=== PATIENT | female | born 1990 | race Two or more races ===

== ENCOUNTER 2019-08-25 22:20 | Inpatient (IN) | payer BC, OTHER ==
[2019-08-25 23:00] LABS: APPEARANCE,URINE SLIGHTLY-CLOUDY; BILIRUBIN,URINE NEGATIVE (NEGATIVE); COLOR,URINE YELLOW; GLUCOSE, URINE NEGATIVE (NEGATIVE); KETONES,URINE TRACE mg/dL (NEGATIVE); LEUKOCYTE ESTERASE,URINE TRACE (NEGATIVE); NITRITE,URINE NEGATIVE (NEGATIVE); PROTEIN,URINE NEGATIVE (NEGATIVE); URINE SPECIFIC GRAVITY 1.025; UROBILINOGEN,URINE NEGATIVE mg/dL (<2.0)
[2019-08-25 23:15] LABS: URINE AMPHETAMINES SCREEN NEGATIVE; URINE BARBITURATES SCREEN NEGATIVE; URINE BENZODIAZEPINES SCREEN NEGATIVE; URINE COCAINE SCREEN NEGATIVE; URINE METHADONE SCREEN NEGATIVE; URINE PHENCYCLIDINE SCREEN NEGATIVE
[2019-08-25] MEDS ORDERED: RINGERS SOLUTION,LACTATED 1,000 ML IV PRN (23:26)
[2019-08-25] MEDS ORDERED: MISOPROSTOL 0.2 MG TABLET ONE (23:31)
[2019-08-25] MEDS ORDERED: LIDOCAINE 1% INJ-PF (10 MG/ML) 30 ML SDV ONE (23:31)
[2019-08-25] MEDS ORDERED: OXYTOCIN/0.9 % SODIUM CHLORIDE 30 UNIT/500 ML RTUINJ ONE (23:31)
[2019-08-25] MEDS ORDERED: OXYTOCIN 10 UNIT/ML VIAL ONE (23:31)
[2019-08-25] MEDS ORDERED: RINGERS SOLUTION,LACTATED 1,000 ML IV ONE (23:59)
[2019-08-26] MEDS ORDERED: EPHEDRINE SULFATE INJ 50 MG/1 ML AMPULE ONE (00:13)
[2019-08-26] MEDS ORDERED: FENTANYL/BUPIVACAINE/NS/PF 300 MCG/150 ML RTUINJ EPI ONE (00:14)
[2019-08-26] MEDS ORDERED: BUPIVACAINE HCL 0.25 % INJ/PF (2.5 MG/1 ML) 30 ML VIAL ONE (00:14)
[2019-08-26 00:15] LABS: ABSOLUTE BASOPHILS # (AUTO) 0.1 10^3/uL (0.0-0.2); ABSOLUTE EOSINOPHILS # (AUTO) 0.1 10^3/uL (0.0-0.6); ABSOLUTE LYMPHOCYTES (AUTO) 3.2 10^3/uL (0.5-4.7); ABSOLUTE MONOCYTES (AUTO) 1.3 10^3/uL (0.1-1.4); ABSOLUTE NEUT (AUTO) 10.8 10^3/uL (1.7-8.2); BASOPHILS % (AUTO) 0.7 % (0-2); EOSINOPHILS % (AUTO) 0.3 % (0-6); HEMATOCRIT 37.4 % (36.0-47.0); HEMOGLOBIN 12.8 g/dL (12.0-15.5); LYMPHOCYTES % (AUTO) 20.8 % (13-45); MEAN CORPUSCULAR HEMOGLOBIN 30.1 pg (27.0-33.4); MEAN CORPUSCULAR HGB CONC 34.3 g/dL (32.0-36.0); MEAN CORPUSCULAR VOLUME 88 fl (80-97); MONOCYTES % (AUTO) 8.3 % (3-13); PLATELET COUNT 269 10^3/uL (150-450); RED BLOOD COUNT 4.27 10^6/uL (3.72-5.28); RED CELL DISTRIBUTION WIDTH 13.7 % (11.5-14.0); SEGMENTED NEUTROPHILS % (AUTO) 69.9 % (42-78); TOTAL CELLS COUNTED % (AUTO) 100 %; WHITE BLOOD COUNT 15.5 10^3/uL (4.0-10.5)
[2019-08-26 01:57] LABS: CHLAM PCR NOT DETECTED (NOT DETECT)
--- NOTE | 2019-08-26 03:18 | Admission Physical ---
Datetime Report Generated by CPN: 08/26/2019 03:18 CURRENT ADMISSION Chief Complaint: Uterine Contractions Chief Complaint Other: Having painful contractions, increasing intensity and frequency Admit Impression : Term, Intrauterine ; Active Labor Admit Plan: Admit to Unit; Initiate Labor Protocol ALLERGIES Medication Allergies: No Medication Allergies: No Known Allergies (01/26/2016) Latex: No Latex Allergies Food Allergies: none Environmental Allergies: none OBSTETRICAL HISTORY EDC: 08/29/2019 00:00 : 3 Para: 2 Term: 1 : 0 SAB: 0 IAB: 0 Ectopic: 0 Livin Cesareans: 0 VBACs: 0 Multiple Births: 0 Gestational Diabetes: No Rh Sensitization: No Incompetent Cervix: No JARED: No Infertility: No ART Treatment: No Uterine Anomaly: No IUGR: Yes Hx Previous C/S: No Macrosomia: No Hx Loss/Stillborn: No PIH: No Hx : No Placenta Previa/Abruption: No Depression/PP Depression: Yes PTL/PROM: No Post Hemorrhage: No Current Procedures: Ultrasound; NST Obstetrical History Comments: [id number] IUGR G22017 G3- Current SEE RECORDS Alcohol: No Marijuana : No Cocaine: No Other Illicit Drugs: No Cigarettes: Former Smoker. [id number] MEDICAL HISTORY Diabetes: No Blood Transfusion: No Pulmonary Disease (Asthma, TB): No Breast Disease: No Hypertension: No Tool Carrier Surgery: No Heart Disease: No Hosp/Surgery: Yes Autoimmune Disorder: No Anesthetic Complications: No Kidney Disease: No Abnormal Pap Smear: No Neuro/Epilepsy: No Psychiatric Disorders: No Other Medical Diseases: No Hepatitis/Liver Disease: No Significant Family History: No Varicosities/Phlebitis: No Trauma/Violence : No Thyroid Dysfunction: No Medical History Comments: hx of wisdom teeth removal, uterus biospy and right breast biopsy INFECTIOUS HISTORY Gonorrhea: No Genital Herpes: No Chlamydia: Yes Tuberculosis: No Syphilis: No Hepatitis: No HIV/AIDS Exposure: No Rash or Viral Illness: No HPV: No Infectious History Comments: Chlamydia positive 08/05, no NIKUNJ results yet. PHYSICAL EXAM General: Normal HEENT: Normal Neurologic: Normal Thyroid: Normal Heart: Normal Lungs: Normal Breast: Normal Back: Normal Abdomen: Normal Genitourinary Exam: Normal Extremities: Normal DTRs: Normal Pelvic Type: Adequate Vital Signs: Reviewed VAGINAL EXAM Dilatation: 4 Effacement: 50 Station: -2 Contraction Comments: contractions q 3 minutes MEMBRANES Pooling: Negative Membranes: Intact FETUS A EGA: 39.4 Monitoring: External US FHR- Baseline: 130 Variability: Moderate 6-25bpm Accelerations: 15X15 Decelerations: None FHR Category: Category I Presentation: Vertex Admit Comment: at 39.4 wks EGA in active labor -Admit to LDR -NPO and IVFs -CEFM and toco -Desires epidural -Hx of 2 SVDs -Anticipate PLANS FOR LABOR AND DELIVERY Labor and Delivery: None Pain Management: Epidural Feeding Preference: Breast Benefit of Breast Feed Discussed: Yes Circumcision: Yes INFORMED CONSENT Informed Consent Obtained: Risks, Benefits and Alternatives Discussed Signature: with User ID: Nilson : with User ID: Nilson
[2019-08-26] MEDS ORDERED: MAGNESIUM HYDROXIDE SUSP 30 ML UDCUP PO PRN (03:26)
[2019-08-26] MEDS ORDERED: DIBUCAINE 1% OINTMENT 28 GM TP PRN (03:26)
[2019-08-26] MEDS ORDERED: PROMETHAZINE HCL 25 MG TABLET PO PRN (03:26)
[2019-08-26] MEDS ORDERED: ZOLPIDEM TARTRATE 5 MG TABLET PO PRN (03:26)
[2019-08-26] MEDS ORDERED: DIPH/PERTUSS(ACELL)/TETANUS VAC/PF 0.5 ML SYR (>=10YO) IM PRN (03:26)
[2019-08-26] MEDS ORDERED: DIPHENHYDRAMINE HCL 25 MG CAPSULE PO PRN (03:26)
[2019-08-26] MEDS ORDERED: BENZOCAINE/MENTHOL AEROSOL SPRAY 56 ML TOP PRN (03:26)
[2019-08-26] MEDS ORDERED: GLYCERIN/WITCH HAZEL LEAF 1 EACH MED..WIPE TP PRN (03:26)
[2019-08-26] MEDS ORDERED: OXYTOCIN/0.9 % SODIUM CHLORIDE 30 UNIT/500 ML RTUINJ IV PRN (03:26)
[2019-08-26] MEDS ORDERED: NA PHOS,M-B/NA PHOS,DI-BA (ADULT) 133 ML ENEMA PR PRN (03:26)
[2019-08-26] MEDS ORDERED: PSEUDOEPHEDRINE HCL 30 MG TABLET PO PRN (03:26)
[2019-08-26] MEDS ORDERED: ACETAMINOPHEN WITH CODEINE #3 TABLET PO PRN ×2 (03:26)
[2019-08-26] MEDS ORDERED: ACETAMINOPHEN 650 MG SUPP.RECT PR PRN (03:26)
[2019-08-26] MEDS ORDERED: PROMETHAZINE HCL INJ 25 MG/1 ML VIAL IV PRN (03:26)
[2019-08-26] MEDS ORDERED: MEASLES,MUMPS&RUBELLA VACC/PF 0.5 ML VIAL SUBCUT PRN (03:26)
[2019-08-26] MEDS ORDERED: PROMETHAZINE HCL 25 MG SUPP.RECT PR PRN (03:26)
[2019-08-26 03:45] LABS: URINE MARIJUANA (THC) SCREEN UNCONFIRMED POSITIVE
--- NOTE | 2019-08-26 04:10 | Delivery Summary ---
Del Sum A-C Datetime Report Generated by CPN: 08/26/2019 04:09 DELIVERY PERSONNEL DELIVERY PERSONNEL: [id number] Delivery Doctor:: Traah Vasquez MD Labor and Delivery Nurse:: Mack Carpenter RNweights and measures sealer Nurse:: OTILIA Renteira Appeals Representative/FITTING ROOM SUPERVISOR: Gabriela Reddy, SALT MANAGER MATERNAL INFORMATION Delivery Anesthesia: Epidural Medications After Delivery: Pitocin 30 Units in 500ml NS/D5W Estimated Blood Loss (ml): 100 Delivery QBL: 100 Maternal Complications: None Provider Comments: Called to room as patient was complete and plus 3 station. Patient pushed a few times and delivered a viable male . After delivery of the head, the shoulders and rest of the body delivered easily. Infant vigorous and cord clamping delayed for 30 seconds and then placed skin to skin. BOth mother and infant stable LABOR SUMMARY EDC: 08/29/2019 00:00 No. Babies in Womb: 1 Attempted: No Labor Anesthesia: None LABOR INFORMATION Reason for Induction: Not Applicable Onset of Labor: 08/25/2019 22:00 Complete Dilatation: 08/26/2019 02:31 Oxytocin: N/A Group B Beta Strep: Negative Antibiotics # of Doses: 0 Antibiotics Time of Last Dose: 0 Name of Antibiotic Given: 0 Steroids Given: None Reason Steroids Not Administered: Not Applicable MEMBRANES Membranes Rupture Method: Spontaneous Rupture of Membranes: 08/26/2019 00:58 Length of Rupture (hr): 2.00 Amniotic Fluid Color: Clear Amniotic Fluid Amount: Small Amniotic Fluid Odor: Normal STAGES OF LABOR Stage 1 hr: 4 Stage 1 min: 31 Stage 2 hr: 0 Stage 2 min: 27 Stage 3 hr: 0 Stage 3 min: 5 Total Time in Labor hr: 5 Total Time in Labor min: 3 VAGINAL DELIVERY Episiotomy: None Laceration #1: Perineal Laceration Extension #1: First Degree Other Laceration: No, hemostatic Laceration Repair: Not Applicable Sponge Count Correct: N/A CSECTION DELIVERY Primary Indication: N/A Secondary Indication: N/A CSection Incidence: N/A Labor: N/A Elective: N/A CSection Incision: N/A BABY A INFORMATION Delivery Date/Time: 08/26/2019 02:58 Method of Delivery: Vaginal Born in Route : No : N/A Forceps: N/A Vacuum Extraction: N/A Shoulder Dystocia : No PRESENTATION/POSITION BABY A Presentation: Cephalic Cephalic Presentation: Vertex Vertex Position: Left Occipital Anterior Breech Presentation: N/A PLACENTA INFORMATION BABY A Placenta Delivery Time : 08/26/2019 03:03 Placenta Method of Delivery: Spontaneous Placenta Status: Delivered SCORES BABY A Heart Rate 1 min: >100 bpm Resp Effort 1 min: Good Cry Reflex Irritability 1 min: Cough or Sneeze or Pulls Away Muscle Tone 1 min: Active Motion Color 1 min: Completely [place] Resuscitation Effort 1 min: Tactile Stimulation SCORE 1 MIN: 10 Heart Rate 5 min: >100 bpm Resp Effort 5 min: Good Cry Reflex Irritability 5 min: Cough or Sneeze or Pulls Away Muscle Tone 5 min: Active Motion Color 5 min: Completely [place] Resuscitation Effort 5 min: Tactile Stimulation SCORE 5 MIN: 10 INFORMATION BABY A Gestational Age at Delivery: 39.4 Gestational Status: Full Term- 39- 40.6 Weeks Outcome : Liveborn Infant Condition : Stable Sex: Male IDENTIFICATION BABY A Verification Date/Time: 08/26/2019 03:07 ID Band Number: [id number] Mother's Name Verified: Yes RN Verifying Infant: rn kurtsmann, rn oswaldo WEIGHT/LENGTH BABY A Birthweight (gm): 3360 Weight (lb): 7 Weight (oz): 7 Length (in): 19.00 Infant Length (cm): 48.26 CORD INFORMATION BABY A No. Cord Vessels: 3 Nuchal Cord : N/A Cord Blood Taken: Yes-For Eval (Mom's Blood Type - or O+) Infant Suction: None ASSESSMENT BABY A Infant Complications: Multiple Variable Decels Physical Findings at Delivery: Within Normal Limits Infant Respirations: Appears Normal Skin to Skin: Yes Skin to Skin Time (min): 60 Energy Attorney/ALS Called : No Infant Care By: Roberto Carpenter RN Transferred To: Remains with Mother BABY B INFORMATION : N/A SIGNATURES Signature: with User ID: Nilson : with User ID: Nilson
--- NOTE | 2019-08-26 04:45 | Warning Signs in Babies ---
VOD Warning Signs Datetime Report Generated by [facility]: 08/26/2019 04:45 VOD#608 -Warning Signs in Babies: Viewed with Parent(s)/Family (08/26/2019 04:45:Mack Carpenter RN)
[2019-08-26] MEDS: IBUPROFEN 800 MG TABLET PO SCH ×4 (05:26→22:37)
--- NOTE | 2019-08-26 08:43 | PDOC PROGRESS REPORT ---
Subjective-OB Progress Note for:: 08/26/19 Physical Exam (OB) Vital Signs: Temp Pulse Resp BP Pulse Ox 98.0 F 73 18 139/75 H 99 08/26/19 07:09 08/26/19 07:09 08/26/19 07:09 08/26/19 07:09 08/26/19 07:09 Intake & Output 08/25/19 08/26/19 08/27/19 06:59 06:59 06:59 Weight 87.7 kg - Lochia Lochia Amount: Scant < 10 ml Lochia Color: Rubra/Red - Abdomen Description: Tender, Soft, Round Hernia Present: No Bowel Sounds: Normoactive Flatus Presence: Present Stool: No Fundal Description: Firm, Midline Fundal Height: u/u - u/2 Objective-Diagnostic Laboratory: 08/25/19 23:59 08/25/19 08/25/19 08/25/19 22:30 23:59 23:59 WBC 15.5 H RBC 4.27 Hgb 12.8 Hct 37.4 MCV 88 MCH 30.1 MCHC 34.3 RDW 13.7 Plt Count 269 Seg Neutrophils % 69.9 Urine Color YELLOW Urine Appearance SLIGHTLY-CLOUDY Urine pH 6.0 Ur Specific [place] 1.025 Urine Protein NEGATIVE Urine Glucose (UA) NEGATIVE Urine Ketones TRACE H Urine Blood NEGATIVE Urine Nitrite NEGATIVE Ur Leukocyte Esterase TRACE H Blood Type O POSITIVE Antibody Screen NEGATIVE
[2019-08-26] MEDS: SENNOSIDES/DOCUSATE 8.6-50 MG 1 EACH TABLET PO SCH (10:11)
[2019-08-26] MEDS: FERROUS SULFATE 325 MG TABLET PO SCH ×2 (10:11→18:14)
[2019-08-26] MEDS: PRENATAL VITAMIN W DHA CAPSULE PO SCH (10:11)
[2019-08-26] MEDS: DOCUSATE SODIUM 100 MG CAPSULE PO SCH ×2 (10:11→18:14)
[2019-08-26] MEDS: FAMOTIDINE 20 MG TABLET PO SCH ×2 (10:12→22:37)
[2019-08-27] MEDS: IBUPROFEN 800 MG TABLET PO SCH ×3 (06:35→21:49)
[2019-08-27 07:26] LABS: HEMATOCRIT 33.4 % (36.0-47.0); HEMOGLOBIN 11.4 g/dL (12.0-15.5); MEAN CORPUSCULAR HEMOGLOBIN 30.2 pg (27.0-33.4); MEAN CORPUSCULAR HGB CONC 34.2 g/dL (32.0-36.0); MEAN CORPUSCULAR VOLUME 88 fl (80-97); PLATELET COUNT 227 10^3/uL (150-450); RED BLOOD COUNT 3.78 10^6/uL (3.72-5.28); RED CELL DISTRIBUTION WIDTH 13.7 % (11.5-14.0)
--- NOTE | 2019-08-27 09:16 | PDOC PROGRESS REPORT ---
Subjective-OB Progress Note for:: 08/27/19 Subjective: Doing well, no c/o, holding baby, hsb in room, Physical Exam (OB) Vital Signs: Temp Pulse Resp BP Pulse Ox 97.7 F 68 16 126/68 H 99 08/27/19 07:47 08/27/19 07:47 08/27/19 07:47 08/27/19 07:47 08/27/19 07:47 Intake & Output 08/26/19 08/27/19 08/28/19 06:59 06:59 06:59 Intake Total 900 Balance 900 Weight 87.7 kg - Lochia Lochia Amount: Small 10-25 ml Lochia Color: Rubra/Red - Abdomen Description: Soft Hernia Present: No Fundal Description: Firm, Midline Fundal Height: u/u - u/2 Objective-Diagnostic Laboratory: 08/27/19 07:09 08/27/19 07:09 WBC 13.0 H RBC 3.78 Hgb 11.4 L Hct 33.4 L MCV 88 MCH 30.2 MCHC 34.2 RDW 13.7 Plt Count 227 Assessment and Plan(PN) - Assessment and Plan (1) Chlamydia infection affecting in third trimester, antepartum Is this a current diagnosis for this admission?: Yes (2) Positive urine drug screen Is this a current diagnosis for this admission?: Yes (3) Delivery normal Is this a current diagnosis for this admission?: Yes - Time Spent with Patient Time with patient: Less than 15 minutes Medications reviewed and adjusted accordingly: Yes - Disposition Anticipated Discharge: Home Within: within 24 hours
[2019-08-27] MEDS: DOCUSATE SODIUM 100 MG CAPSULE PO SCH ×2 (09:25→17:01)
[2019-08-27] MEDS: PRENATAL VITAMIN W DHA CAPSULE PO SCH (09:25)
[2019-08-27] MEDS: SENNOSIDES/DOCUSATE 8.6-50 MG 1 EACH TABLET PO SCH (09:25)
[2019-08-27] MEDS: FAMOTIDINE 20 MG TABLET PO SCH ×2 (09:25→21:48)
[2019-08-27] MEDS: FERROUS SULFATE 325 MG TABLET PO SCH ×2 (09:25→17:01)
[2019-08-28] MEDS: IBUPROFEN 800 MG TABLET PO SCH ×2 (05:14→14:56)
[2019-08-28 07:59] VITALS: BP 106/69
[2019-08-28] MEDS: FERROUS SULFATE 325 MG TABLET PO SCH (09:27)
[2019-08-28] MEDS: SENNOSIDES/DOCUSATE 8.6-50 MG 1 EACH TABLET PO SCH (09:27)
[2019-08-28] MEDS: DOCUSATE SODIUM 100 MG CAPSULE PO SCH (09:27)
[2019-08-28] MEDS: PRENATAL VITAMIN W DHA CAPSULE PO SCH (09:27)
[2019-08-28] MEDS: FAMOTIDINE 20 MG TABLET PO SCH (09:27)
--- NOTE | 2019-08-28 11:08 | PDOC DISCHARGE SUMMARY ---
Impression - Admit/DC Date/PCP Admission Date/Primary Care Provider: 08/25/19 23:24 Discharge Date: 08/28/19 - Assessment Summary: 29yo G3 now P3 s/p ppd 2 stable and ready for discharge understands warning s/s and when to seek immediate care or rtc/[facility] - Additional Information Resuscitation Status: Full Code Discharge Diet: As Tolerated, Regular Discharge Activity: Activity As Tolerated, Balance Activity w/Rest, No Lifting Over 10 Pounds, Pelvic Rest, No tub bath, Walk Frequently Prescriptions: Ibuprofen [Motrin 800 mg Tablet] 800 mg PO Q8HP PRN #20 tablet PRN Reason: Abdominal Cramping Home Medications: Pnv,Calcium 72/Iron/Folic Acid [Pnv Plus Multivit Tab] 1 each PO DAILY 01/26/16 Ibuprofen [Motrin 800 mg Tablet] 800 mg PO Q8HP PRN #20 tablet 08/28/19 Results Laboratory Results: WBC 13.0 10^3/uL (4.0-10.5) H 08/27/19 07:09 RBC 3.78 10^6/uL (3.72-5.28) 08/27/19 07:09 Hgb 11.4 g/dL (12.0-15.5) L 08/27/19 07:09 Hct 33.4 % (36.0-47.0) L 08/27/19 07:09 MCV 88 fl (80-97) 08/27/19 07:09 MCH 30.2 pg (27.0-33.4) 08/27/19 07:09 MCHC 34.2 g/dL (32.0-36.0) 08/27/19 07:09 RDW 13.7 % (11.5-14.0) 08/27/19 07:09 Plt Count 227 10^3/uL (150-450) 08/27/19 07:09 Lymph % (Auto) 20.8 % (13-45) 08/25/19 23:59 [place] % (Auto) 8.3 % (3-13) 08/25/19 23:59 Eos % (Auto) 0.3 % (0-6) 08/25/19 23:59 Baso % (Auto) 0.7 % (0-2) 08/25/19 23:59 Absolute Neuts (auto) 10.8 10^3/uL (1.7-8.2) H 08/25/19 23:59 Absolute Lymphs (auto) 3.2 10^3/uL (0.5-4.7) 08/25/19 23:59 Absolute Monos (auto) 1.3 10^3/uL (0.1-1.4) 08/25/19 23:59 Absolute Eos (auto) 0.1 10^3/uL (0.0-0.6) 08/25/19 23:59 Absolute Basos (auto) 0.1 10^3/uL (0.0-0.2) 08/25/19 23:59 Seg Neutrophils % 69.9 % (42-78) 08/25/19 23:59 Urine Color YELLOW 08/25/19 22:30 Urine Appearance SLIGHTLY-CLOUDY 08/25/19 22:30 Urine pH 6.0 (5.0-9.0) 08/25/19 22:30 Ur Specific [place] 1.025 08/25/19 22:30 Urine Protein NEGATIVE mg/dL (NEGATIVE) 08/25/19 22:30 Urine Glucose (UA) NEGATIVE mg/dL (NEGATIVE) 08/25/19 22:30 Urine Ketones TRACE mg/dL (NEGATIVE) H 08/25/19 22:30 Urine Blood NEGATIVE (NEGATIVE) 08/25/19 22:30 Urine Nitrite NEGATIVE (NEGATIVE) 08/25/19 22:30 Urine Bilirubin NEGATIVE (NEGATIVE) 08/25/19 22:30 Urine Urobilinogen NEGATIVE mg/dL (<2.0) 08/25/19 22:30 Ur Leukocyte Esterase TRACE (NEGATIVE) H 08/25/19 22:30 Urine Ascorbic Acid 20 (NEGATIVE) H 08/25/19 22:30 Urine Opiates Screen NEGATIVE 08/25/19 22:30 Urine Methadone Screen NEGATIVE 08/25/19 22:30 Ur Barbiturates Screen NEGATIVE 08/25/19 22:30 Ur Phencyclidine Scrn NEGATIVE 08/25/19 22:30 Ur Amphetamines Screen NEGATIVE 08/25/19 22:30 U Benzodiazepines Scrn NEGATIVE 08/25/19 22:30 Urine Cocaine Screen NEGATIVE 08/25/19 22:30 U Marijuana (THC) Screen UNCONFIRMED POSITIVE 08/25/19 22:30 RPR NONREACTIVE (NONREACTIVE) 08/25/19 23:59 Chlamydia DNA (PCR) NOT DETECTED (NOT DETECT) 08/25/19 22:30 N.gonorrhoeae DNA (PCR) NOT DETECTED (NOT DETECT) 08/25/19 22:30 Blood Type O POSITIVE 08/25/19 23:59 Antibody Screen NEGATIVE 08/25/19 23:59
== END 2019-08-28 16:30 | disposition home or self-care (01) | DRG 806 ==
LOC: LC 22:20 → LR 23:24 → 2S 08-26 05:01
PROVIDERS: ADMIT Obstetrics & Gynecology; ATTEND Obstetrics & Gynecology
PROC: 10E0XZZ Delivery of Products of Conception, External Approach (ICD-10-PCS; principal; 2019-08-26)
DX: O76 Abnormality in fetal heart rate and rhythm complicating labor and delivery (principal); O99.324 Drug use complicating childbirth; Z37.0 Single live birth; O70.0 First degree perineal laceration during delivery; F12.90 Cannabis use, unspecified, uncomplicated; Z3A.39 39 weeks gestation of pregnancy
CPT/HCPCS: 1967; 36415; 80307; 80349; 81005; 85025; 85027; 86592; 86850; 86900; 86901; 87491; 87591; G0480; J2590; J3010; J3490